=== PATIENT | female | born 1970 | race Hispanic/Latino ===

== ENCOUNTER 2016-10-18 15:53 | Emergency (ER) | payer BC ==
[2016-10-18 17:00] LABS: Basophils % (Auto) 0.4 % (0.0-1.8); Eosinophils % (Auto) 1.2 % (0.0-4.3); Hematocrit 42.8 % (30.3-42.9); Hemoglobin 14.4 gm/dl (10.1-14.3); Mean Corpuscular HGB Conc 34 % (30-34); Mean Corpuscular Hemoglobin 31 pg (28-32); Mean Corpuscular Volume 91 fl (79-97); Platelet Count 313 K/mm3 (140-440); Red Blood Count 4.69 M/mm3 (3.65-5.03); Red Cell Distribution Width 12.9 % (13.2-15.2); White Blood Count 11.7 K/mm3 (4.5-11.0)
[2016-10-18 17:15] LABS: Bacteria,Urine 1+ /HPF (Negative); Bilirubin,Urine NEG (Negative); Blood,Urine SM (Negative); Ketones,Urine NEG (Negative); Leukocyte Esterase,Urine MOD (Negative); Mucus,Urine 3+ /HPF; Nitrite,Urine NEG (Negative); Protein,Urine <15 mg/dL mg/dL (Negative); Urobilinogen,Urine < 2.0 mg/dL (<2.0)
[2016-10-18 17:16] LABS: Alanine Aminotransferase 24 units/L (7-56); Albumin 4.3 g/dL (3.9-5); Albumin/Globulin Ratio 1.2 %; Alkaline Phosphatase 74 units/L (35-129); Anion Gap 19 mmol/L; BUN/Creatinine Ratio 11.25; Bilirubin,Total 0.4 mg/dL (0.1-1.2); Blood Urea Nitrogen 9 mg/dL (7-17); Calcium 9.2 mg/dL (8.4-10.2); Carbon Dioxide 25 mmol/L (22-30); Chloride 96.4 mmol/L (98-107); Glucose 88 mg/dL (65-100); Lipase 27 units/L (13-60); Potassium 3.7 mmol/L (3.6-5.0); Sodium 137 mmol/L (137-145); Total Protein 7.8 g/dL (6.3-8.2)
[2016-10-18] MEDS ORDERED: ZOFRAN IV ONE (18:19)
[2016-10-18] MEDS ORDERED: TYLENOL PO ONE (18:19)
[2016-10-18] MEDS ORDERED: NACL 0.9% 1000 ML 1,000 ML IV ONE (18:19)
[2016-10-18] MEDS ORDERED: BENTYL PO ONE (18:19)
[2016-10-18] MEDS ORDERED: MORPHINE IV ONE (18:19)
--- NOTE | 2016-10-18 18:19 | Emergency Department Report ---
ED General Adult HPI - General Chief complaint: Abdominal Pain Stated complaint: SENT BY DOCTOR/ABD PAIN Time Seen by Provider: 10/18/16 18:10 Source: patient, RN notes reviewed, old records reviewed Mode of arrival: Ambulatory Limitations: No Limitations - History of Present Illness Initial comments: This is a 46-year-old female. She is previously unknown to me. Her primary care doctor is Dr. Jose Patrick her substation operator conversion is Dr. Sharan Nicholson. Past medical history includes high blood pressure, high cholesterol, migraines, acid reflux. On 10/11/2016, patient had a CAT scan of the abdomen and pelvis which demonstrated colonic diverticulosis, and "some mild fat stranding adjacent to the mid sigmoid colon around the right pelvic sidewall raises suspicion for potential early/mild acute diverticulitis in the appropriate clinical setting." Patient was started empirically on Flagyl and ciprofloxacin. She admits to chronic left lower quadrant abdominal discomfort which has been present essentially since October 11. It is not new, worsening or different. Mild nausea. The pain increases with palpation, range of motion, decreases with rest. No fevers or chills. No chest pain, no shortness of breath. She was sent to the ER by her substation operator conversion for persistent abdominal pain -: Gradual Location: abdomen Quality: aching Consistency: intermittent Improves with: rest Worsens with: movement Associated Symptoms: denies: fever/chills - Related Data Previous Rx's Medication Instructions Recorded Last Taken Type Amoxicillin/K Clav Tab [Augmentin 1 tab PO Q12HR #14 tab 10/18/16 Unknown Rx 875 mg] Metoclopramide [Reglan] 10 mg PO QID PRN #30 tablet 10/18/16 Unknown Rx Allergies Allergy/AdvReac Type Severity Reaction Status Date / Time latex Allergy Rash Verified 10/18/16 16:36 ED Review of Systems ROS: Stated complaint: SENT BY DOCTOR/ABD PAIN Other details as noted in HPI Constitutional: denies: fever Eyes: denies: vision change ENT: denies: epistaxis Respiratory: denies: cough Cardiovascular: denies: chest pain Gastrointestinal: abdominal pain, nausea Genitourinary: denies: dysuria Musculoskeletal: denies: back pain Skin: denies: lesions Neurological: denies: weakness Psychiatric: as per HPI ED Past Medical Hx - Past Medical History Hx Hypertension: Yes Hx GERD: Yes Additional medical history: cholesterol,migraines,diverticulitis - Surgical History Additional Surgical History: 2 ,adnoids,tonsillectomt,tubes in ears - Social History Smoking Status: Never Smoker Substance Use Type: None - Medications Home Medications: Home Medications Medication Instructions Recorded Confirmed Last Taken Type Amoxicillin/K Clav Tab [Augmentin 1 tab PO Q12HR #14 tab 10/18/16 Unknown Rx 875 mg] Metoclopramide [Reglan] 10 mg PO QID PRN #30 tablet 10/18/16 Unknown Rx ED Physical Exam - General Limitations: No Limitations General appearance: alert, in no apparent distress - Head Head exam: Present: atraumatic, normocephalic - Eye Eye exam: Present: normal appearance, EOMI. Absent: nystagmus - ENT ENT exam: Present: normal exam, normal orophraynx, mucous membranes moist, normal external ear exam - Neck Neck exam: Present: normal inspection, full ROM. Absent: tenderness, meningismus - Respiratory Respiratory exam: Present: normal lung sounds bilaterally. Absent: respiratory distress, wheezes, rales, rhonchi, stridor, chest wall tenderness - Cardiovascular Cardiovascular Exam: Present: regular rate, normal rhythm, normal heart sounds. Absent: bradycardia, tachycardia, irregular rhythm, systolic murmur, diastolic murmur, rubs, gallop - GI/Abdominal GI/Abdominal exam: Present: soft, tenderness, normal bowel sounds, other (is minimal left lower quadrant tenderness. No rebound, guarding or peritoneal signs.). Absent: distended, guarding, rebound, rigid, pulsatile mass - Extremities Exam Extremities exam: Present: normal inspection, full ROM, normal capillary refill. Absent: tenderness, pedal edema, joint swelling, calf tenderness - Back Exam Back exam: Present: normal inspection, full ROM. Absent: tenderness, CVA tenderness (R), CVA tenderness (L), muscle spasm, paraspinal tenderness, vertebral tenderness - Neurological Exam Neurological exam: Present: alert, oriented X3, normal gait, other (Extraocular movements intact. Tongue midline. No facial droop. Facial sensation intact to light touch in the V1, V2, V3 distribution bilaterally. 5 and 5 strength in 4 extremities.. Sensation is intact to light touch in 4 extremities.). Absent : motor sensory deficit - Psychiatric Psychiatric exam: Present: normal affect, normal mood - Skin Skin exam: Present: warm, dry, intact, normal color. Absent: rash ED Course Vital Signs 10/18/16 10/18/16 10/18/16 16:29 18:58 19:32 Temperature 98.1 F 98.5 F 98 F Pulse Rate 71 78 79 Respiratory 18 18 18 Rate Blood Pressure 132/82 Blood Pressure 135/94 118/59 [Left] O2 Sat by Pulse 100 97 100 Oximetry - Reevaluation(s) Reevaluation #1: 10/18/16 18:46 Differential diagnosis: Diverticulitis, ulcerative colitis, colonic malignancy, Crohn's disease, nonspecific inflammatory bowel disease. Assessment and plan: 46-year-old female with over a week of abdominal pain. She is afebrile with reassuring vital signs. She is tolerating liquid feeds. She is minimally tender in the left lower quadrant. I had an extensive discussion with the patient and the covering substation operator conversion for her group, Dr. Bell. The patient does not want a repeat CAT scan out of concern for radiation- induced cancer and malignancy. Clinically, I think it is very unlikely that the patient has an abscess or perforation. I did offer the patient a CAT scan, but she declines out of the aforementioned concerns. Through shared decision making, we have established an appropriate plan. After discussion with the covering substation operator conversion, Dr. Brown, we will change the patient's antibiotics to Augmentin, and the gastroenterology office is going to call the patient for close outpatient follow-up appointment to assess clinical improvement. Patient understands that she can return to the ER right away if and when symptoms change, worsen or get different Reevaluation #2: 10/18/16 19:23 Patient feels improved. Requests to go home. Tolerating liquid feeds. Patient will be discharged as planned. ED Medical Decision Making - Lab Data Result diagrams: 10/18/16 16:44 10/18/16 16:44 Vital Signs 10/18/16 16:29 Temperature 98.1 F Pulse Rate 71 Respiratory 18 Rate Blood Pressure 132/82 O2 Sat by Pulse 100 Oximetry Lab Results 10/18/16 10/18/16 10/18/16 Range/Units 16:44 16:44 Unknown WBC 11.7 H (4.5-11.0) K/mm3 RBC 4.69 (3.65-5.03) M/mm3 Hgb 14.4 H (10.1-14.3) gm/dl Hct 42.8 (30.3-42.9) % MCV 91 (79-97) fl MCH 31 (28-32) pg MCHC 34 (30-34) % RDW 12.9 L (13.2-15.2) % Plt Count 313 (140-440) K/mm3 Lymph % (Auto) 21.2 (13.4-35.0) % Greene % (Auto) 7.9 H (0.0-7.3) % Eos % (Auto) 1.2 (0.0-4.3) % Baso % (Auto) 0.4 (0.0-1.8) % Lymph # 2.5 (1.2-5.4) K/mm3 Greene # 0.9 H (0.0-0.8) K/mm3 Eos # 0.1 (0.0-0.4) K/mm3 Baso # 0.0 (0.0-0.1) K/mm3 Seg Neutrophils % 69.3 (40.0-70.0) % Seg Neutrophils # 8.1 H (1.8-7.7) K/mm3 Sodium 137 (137-145) mmol/L Potassium 3.7 (3.6-5.0) mmol/L Chloride 96.4 L (98-107) mmol/L Carbon Dioxide 25 (22-30) mmol/L Anion Gap 19 mmol/L BUN 9 (7-17) mg/dL Creatinine 0.8 (0.7-1.2) mg/dL Estimated GFR > 60 ml/min BUN/Creatinine Ratio 11.25 % Glucose 88 (65-100) mg/dL Calcium 9.2 (8.4-10.2) mg/dL Total Bilirubin 0.4 (0.1-1.2) mg/dL AST 26 (5-40) units/L ALT 24 (7-56) units/L Alkaline Phosphatase 74 (35-129) units/L Total Protein 7.8 (6.3-8.2) g/dL Albumin 4.3 (3.9-5) g/dL Albumin/Globulin Ratio 1.2 % Lipase 27 (13-60) units/L Urine Color Yellow (Yellow) Urine Turbidity Clear (Clear) Urine pH 5.0 (5.0-7.0) Ur Specific [place] 1.025 (1.003-1.030) Urine Protein <15 mg/dl (Negative) mg/dL Urine Glucose (UA) Neg (Negative) mg/dL Urine Ketones Neg (Negative) mg/dL Urine Blood Sm (Negative) Urine Nitrite Neg (Negative) Urine Bilirubin Neg (Negative) Urine Urobilinogen < 2.0 (<2.0) mg/dL Ur Leukocyte Esterase Mod (Negative) Urine WBC (Auto) 13.0 H (0.0-6.0) /HPF Urine RBC (Auto) 8.0 (0.0-6.0) /HPF U Epithel Cells (Auto) 4.0 (0-13.0) /HPF Urine Bacteria (Auto) 1+ (Negative) /HPF Urine Mucus 3+ /HPF Urine HCG, Qual Negative (Negative) Critical care attestation.: If time is entered above; I have spent that time in minutes in the direct care of this critically ill patient, excluding procedure time. ED Disposition Clinical Impression: Abdominal pain Disposition: DISCHARGED TO HOME OR SELFCARE Is pt being admited?: No Does the pt Need Aspirin: No Condition: Stable Instructions: Abdominal Pain (ED) Additional Instructions: Discontinue Flagyl and ciprofloxacin. Do not consume alcohol. Take the Augmentin antibiotic therapy, and Reglan as required as needed for nausea. Follow up with her substation operator conversion within the next 48-72 hours for a recheck. Return to the ER right away with new pain, worsened pain, migration of pain, fevers or chills, intractable nausea or vomiting, inability to tolerate liquid feeds. Prescriptions: Amoxicillin/K Clav Tab [Augmentin 875 mg] 1 tab PO Q12HR #14 tab Metoclopramide [Reglan] 10 mg PO QID PRN #30 tablet PRN Reason: Nausea Referrals: CHRISTIANO GARCIA MD [Staff Physician] - 3-5 Days Forms: Work/School Release Form(ED)
[2016-10-18 19:33] VITALS: BP 118/59
== END 2016-10-18 19:34 | disposition home or self-care (01) ==
LOC: ED 15:53
DX: R10.32 Left lower quadrant pain (principal); I10 Essential (primary) hypertension; K21.9 Gastro-esophageal reflux disease without esophagitis
CPT/HCPCS: 36415; 80053; 81001; 81025; 83690; 85025; 96361; 96374; 96375; 99283; J2270; J2405; J7030